=== PATIENT | male | born 1985 | race Caucasian/White ===

== ENCOUNTER 2019-04-30 06:30 | Inpatient (IN) | payer MEDICAID ==
[~2019-04-30] VITALS: Ht 180.3 cm; Wt 87.3 kg
--- NOTE | ~2019-04-30 | EC ---
PATIENT:LISA TUCKER DATE OF SERVICE: 04/30/19 SEX: M MEDICAL RECORD: [id number] DATE OF : 85 [facility] AGE OF PATIENT: 33 ADMISSION DATE: 04/30/19 REFERRING PHYSICIAN: INTERPRETING PHYSICIAN: LOIS VALDEZ MD ECHOCARDIOGRAM REPORT ECHO CHARGES 4 ECHO COMPLETE Date: 04/30/19 CLINICAL DIAGNOSIS: IHSS/CP ECHOCARDIOGRAPHIC MEASUREMENTS (adult normal given) AC root (d.<3.7cm) 3.6 cm LV Septum d (<1.2 cm> 1.5 cm Valve Excursion 2.5 cm LV Septum (systole) 1.8 cm Left Atria (s.<4.0cm> 4.3 cm LVPW d(<1.2cm) 1.1 cm RV (d.<2.3cm) 2.2 cm LVPW (sytole) 1.8 cm LV diastole(<5.6CM) 6.5 cm MV E-F(>70mm/sec) cm LV systole 4.6 cm LVOT Diameter 2.0 cm MV exc.(>10mm) cm Est.ejection fraction (50-75%) % DOPPLER: LVIT cm/sec A 61.0 cm/sec E 53.0 cm/sec LA cm/sec RVSP 37.0 mmHg LVOT 68.0 cm/sec AOP1/2T m/s Asc. Ao 106 cm/sec RVOT 57.0 cm/sec RA cm/sec PA 100 cm/sec AV Gradient Peak 4.5 mmHg AV Mean 2.4 mmHg AV Area 1.9 cm MV Gradient Peak 2.2 mmHg MV Mean 0.97 mmHg MV Area cm COMMENTS: [employer] Dispatcher: 1 ROBERT SOTOOE Sales And Marketing Intern: 1 Dr. Valdez TAPE# PACS Pericardial Effusion N DATE OF SERVICE: ECHOCARDIOGRAM FINDINGS: 1. Left ventricular chamber size is dilated. Left ventricular systolic function is moderately reduced, overall ejection fraction 30%. 2. Left atrium is enlarged at 4.3 cm. Right atrium and right ventricular chamber sizes are as well dilated giving 4-chamber dilatation. 3. Valvular structures have normal structure and motion. ECHOCARDIOGRAM REPORT [id number] LISA TUCKER 4. No evidence of outflow tract hypertrophy. 5. Doppler interrogation reveals mild mitral regurgitation, moderate tricuspid regurgitation, no other valvular insufficiency or stenosis. Pulmonary systolic pressure is estimated at 37 mmHg. 6. No evidence of pericardial effusion or left ventricular thrombus. TRANSINT:[id number] Voice Confirmation ID: [id number] DOCUMENT ID: [id number] LOIS VALDEZ MD CC: [id number] DICTATION DATE: 04/30/191703 CUSTODIAL AIDE: 04/30/19 1734 ADM IN [facility] [address] [place] [address]
[2019-04-30 06:40] VITALS: Ht 180.3 cm; Wt 87.3 kg
[2019-04-30] MEDS ORDERED: TOPROL XL100 MG PO (06:43)
[2019-04-30] MEDS ORDERED: HYDROCODON-ACE1 EA10 PO (06:44)
[2019-04-30] MEDS ORDERED: XANAX1 MG PO (06:44)
[2019-04-30] MEDS ORDERED: FUROSEMIDE20 MG PO (06:45)
[2019-04-30 07:00] VITALS: BP 101/61
[2019-04-30 07:01] LABS: BASOPHILS 0.6 % (0-2); EOSINOPHILS 3.6 % (0-7); HEMOGLOBIN 12.9 g/dL (13.5-17.5); IMMATURE GRANULOCYTES 0.1 % (0-5); LYMPHOCYTES 37.5 % (15-50); MCH 29.1 pg (26.0-34.0); MCHC 33.9 g/dL (31.0-37.0); MCV 85.6 fL (80.0-100.0); MEAN PLATELET VOLUME 9.7 fL (7.4-10.4); MONOCYTES 14.3 % (2-11); NEUTROPHILS 43.9 % (40-80); PLATELET COUNT 298 10x3/uL (130-400); RBC 4.44 10x6/uL (4.20-6.10); RDW 13.3 % (11.5-14.5); WBC 9.1 10x3/uL (4.8-10.8)
--- NOTE | 2019-04-30 07:07 | NUR ---
REPROT GIVEN TO MONET LINDO
[2019-04-30 07:13] LABS: APTT 29.5 SECONDS (22.8-39.4); INR 1.09 (0.85-1.17); PROTIME 13.6 SECONDS (11.6-15.0)
[2019-04-30 07:42] LABS: ALBUMIN 3.4 g/dL (3.4-5.0); ALKALINE PHOSPHATASE 97 U/L (46-116); ALT (SGPT) 46 U/L (10-68); BILIRUBIN - TOTAL 0.23 mg/dL (0.2-1.3); CALC OSMOLALITY 287 mosm/kg (275-300); CALCIUM 8.7 mg/dL (8.5-10.1); CARBON DIOXIDE 24.1 mmol/L (21.0-32.0); CHLORIDE - SERUM 107 mmol/L (98-107); CKMB 7.2 U/L (0.0-3.6); CREATINE KINASE 140 UL (21-232); CREATININE - SERUM 1.1 mg/dL (0.6-1.3); GLUCOSE 98 mg/dL (74-106); MAGNESIUM - SERUM 1.9 mg/dL (1.8-2.4); PROTEIN - SERUM 7.5 g/dL (6.4-8.2); SODIUM 143 mmol/L (136-145); UREA NITROGEN 22 mg/dL (7-18); eGFR NON AFRICAN AMERICAN 82 mL/min (90-120)
[2019-04-30 07:46] LABS: TROPONIN-I 0.081 ng/mL (0.000-0.060)
--- NOTE | 2019-04-30 07:51 | NUR ---
PATIENTS SISTER JOEL CONTACED VIA PHONE PER PATIENT REQUEST, INFORMED THAT PATIENT IS TO BE ADMITTED.
[2019-04-30 08:00] VITALS: BP 108/57
[2019-04-30 08:53] LABS: CKMB 5.8 U/L (0.0-3.6); CREATINE KINASE 133 UL (21-232); TROPONIN-I 0.076 ng/mL (0.000-0.060)
[2019-04-30 09:00] VITALS: BP 110/61
[2019-04-30 10:00] VITALS: BP 105/64
--- NOTE | 2019-04-30 11:03 | NUR ---
PATIENT SEEN BY DR. MENDEZ, ALSO [employer] REP AT BEDSIDE, PACER/DEFIB INTERPRETED. PATIENT CAN BE DC'D HOME PER DR. MENDEZ.
[2019-04-30 11:04] VITALS: BP 110/63
--- NOTE | 2019-04-30 11:20 | HP ---
PATIENT: LISA TUCKER MEDICAL RECORD: [id number] ACCOUNT: [id number] LOCATION:[facility].E15- : 85 ADMISSION DATE: 04/30/19 PCP: XENIA GLEZ HISTORY AND PHYSICAL EXAMINATION DIAGNOSES: 1. Cardiomyopathy. 2. ICD. 3. IHSS. 4. Hypertension. HISTORY OF PRESENT ILLNESS: This is a gentleman followed by cardiology in [place] who now relocates to the [facility]. He has a history of IHSS, cardiomyopathy, and ICD. He presents with shortness of breath, fluid overload, and chest pain. His troponin is elevated; however, his troponin has been elevated in the past due to the IHSS. He is on metoprolol 100 mg b.i.d. for this. His systolic blood pressure is in the 100 range. Pulse is in the 60s. His troponin is 0.076. Chest x-ray has no significant pulmonary vascular edema even though he has crackles on his exam compatible with pulmonary edema. PHYSICAL EXAMINATION: GENERAL APPEARANCE: Well-nourished, well-developed, appears stated age. Level of distress, comfortable. PSYCHIATRIC: Mental status, alert, normal affect. Orientation, oriented to time, place and person. EYES: Lids and conjunctiva, noninjected. No discharge, no pallor. ENT: Lips, teeth, gums, normal dentition. Oropharynx, no cyanosis, no pallor. NECK: Carotid arteries, bilateral normal upstroke, no bruits, no thrills. JUGULAR VEINS: No jugular venous pressure or distention. CERVICAL LYMPH NODES: Nontender, nonenlarged. THYROID: Not enlarged. Nontender. No nodules. LUNGS: Respiratory effort, unlabored. CHEST: Normal curvature. No thoracic deformity. No chest wall tenderness. Percussion, resonant. Auscultation, clear. No wheezes, no rales, no rhonchi. CARDIOVASCULAR: Precordial exam, nondisplaced. No heaves or pericardial thrills. Rate and rhythm, regular. Heart sounds, normal S1, normal S2. No S3, no gallop, no rub. Systolic murmur, not heard. Diastolic murmur, not heard. EXTREMITIES: No cyanosis, no edema. Peripheral pulses, full and equal in all extremities, except as noted. No bruits appreciated. ABDOMEN: Soft, nondistended. Normal aorta. No bruit. Nontender. No masses. Liver, nontender, no hepatomegaly. Spleen, nontender, no splenomegaly. MUSCULOSKELETAL: No joint tenderness. No joint swelling. No erythema. NEUROLOGICAL: Normal gait, normal strength, normal tone. SKIN: Warm and dry. OVERALL IMPRESSION: Chest pain, nausea and vomiting. At this time, we will give least 1 dose of IV Lasix to try to clear this and get his shortness of breath better giving him symptomatic relief from the chest pain. We will interrogate the ICD and do an echocardiogram. TRANSINT:[id number] Voice Confirmation ID: [id number] DOCUMENT ID: [id number] HISTORY AND PHYSICAL [id number] LISA TUCKER JEFFREY MD at 1120 CC: [id number] DICTATION DATE: 04/30/19927 SALESPERSON [employer]: 04/30/19940 ADM IN [facility] [address] [place] [address]
== END 2019-04-30 10:42 | disposition home or self-care (01) | DRG 316 ==
LOC: D.ER 06:30 → D.EDHOLD 09:13
PROVIDERS: Family Medicine; ADMIT Internal Medicine Interventional Cardiology; ATTEND Internal Medicine Interventional Cardiology
DX: I42.1 Obstructive hypertrophic cardiomyopathy (principal); I42.9 Cardiomyopathy, unspecified; I10 Essential (primary) hypertension; Z95.810 Presence of automatic (implantable) cardiac defibrillator; I45.10 Unspecified right bundle-branch block

== ENCOUNTER 2019-05-02 15:31 | Emergency (ER) | payer MEDICAID ==
[~2019-05-02] VITALS: Ht 180.3 cm; Wt 87.3 kg
[~2019-05-02 15:31] MED LIST: FUROSEMIDE20 MG PO; HYDROCODON-ACE1 EA10 PO; TOPROL XL100 MG PO; XANAX1 MG PO
[2019-05-02 15:33] VITALS: Ht 180.3 cm; Wt 87.3 kg
[2019-05-02 16:31] LABS: BASOPHILS 0.6 % (0-2); EOSINOPHILS 1.9 % (0-7); HEMATOCRIT 34.2 % (42.0-54.0); HEMOGLOBIN 11.5 g/dL (13.5-17.5); IMMATURE GRANULOCYTES 0.2 % (0-5); LYMPHOCYTES 49.3 % (15-50); MCH 28.5 pg (26.0-34.0); MCHC 33.6 g/dL (31.0-37.0); MCV 84.9 fL (80.0-100.0); MEAN PLATELET VOLUME 9.6 fL (7.4-10.4); MONOCYTES 7.3 % (2-11); NEUTROPHILS 40.7 % (40-80); PLATELET COUNT 315 10x3/uL (130-400); RBC 4.03 10x6/uL (4.20-6.10); RDW 13.2 % (11.5-14.5); WBC 8.1 10x3/uL (4.8-10.8)
[2019-05-02 16:42] LABS: APTT 27.4 SECONDS (22.8-39.4); INR 1.12 (0.85-1.17); PROTIME 13.9 SECONDS (11.6-15.0)
[2019-05-02 18:31] LABS: UDS - AMPHET NEGATIVE QUAL (NEGATIVE); UDS - BARB NEGATIVE QUAL (NEGATIVE); UDS - BENZO POSITIVE QUAL (NEGATIVE); UDS - COCAINE NEGATIVE QUAL (NEGATIVE); UDS - OPIATE NEGATIVE QUAL (NEGATIVE); UDS - PCP NEGATIVE QUAL (NEGATIVE); UDS - THC POSITIVE QUAL (NEGATIVE)
[2019-05-02 18:36] LABS: ALBUMIN 3.2 g/dL (3.4-5.0); ALKALINE PHOSPHATASE 79 U/L (46-116); ALT (SGPT) 41 U/L (10-68); BILIRUBIN - TOTAL 0.26 mg/dL (0.2-1.3); CALC OSMOLALITY 285 mosm/kg (275-300); CALCIUM 8.2 mg/dL (8.5-10.1); CARBON DIOXIDE 24.2 mmol/L (21.0-32.0); CHLORIDE - SERUM 110 mmol/L (98-107); CREATININE - SERUM 0.8 mg/dL (0.6-1.3); GLUCOSE 97 mg/dL (74-106); PROTEIN - SERUM 6.9 g/dL (6.4-8.2); SODIUM 143 mmol/L (136-145); UREA NITROGEN 15 mg/dL (7-18); eGFR NON AFRICAN AMERICAN > 90 mL/min (90-120)
[2019-05-02 18:52] LABS: CKMB 4.5 U/L (0.0-3.6); CREATINE KINASE 202 UL (21-232)
[2019-05-02 19:07] LABS: TROPONIN-I 0.087 ng/mL (0.000-0.060)
[2019-05-02 19:56] VITALS: BP 112/78
== END 2019-05-02 19:57 | disposition home or self-care (01) ==
LOC: D.ER 15:31
PROVIDERS: Family Medicine
DX: R07.89 Other chest pain (principal); Z72.89 Other problems related to lifestyle; I10 Essential (primary) hypertension

== ENCOUNTER 2021-03-01 17:46 | Observation (INO) | payer MEDICAID ==
[~2021-03-01] VITALS: Ht 180.3 cm; Wt 73.5 kg
[2021-03-01 18:44] LABS: BASOPHILS 0.4 % (0-2); EOSINOPHILS 1.3 % (0-7); HEMATOCRIT 32.4 % (42.0-54.0); HEMOGLOBIN 10.6 g/dL (13.5-17.5); IMMATURE GRANULOCYTES 0.1 % (0-5); LYMPHOCYTE ABS# 2.58 10x3/uL (1.32-3.57); LYMPHOCYTES 30.9 % (15-50); MCH 26.5 pg (26.0-34.0); MCHC 32.7 g/dL (31.0-37.0); MEAN PLATELET VOLUME 10.8 fL (7.4-10.4); MONOCYTES 11.2 % (2-11); NEUTROPHIL ABS# 4.68 10x3/uL (1.78-5.38); NEUTROPHILS 56.1 % (40-80); RDW 16.8 % (11.5-14.5); WBC 8.3 10x3/uL (4.8-10.8)
[2021-03-01 18:49] VITALS: BP 101/75
[2021-03-01 18:54] LABS: PLATELET COUNT 396 10x3/uL (130-400)
[2021-03-01 19:10] LABS: CALC OSMOLALITY 280 mosm/kg (275-300); CALCIUM 8.7 mg/dL (8.5-10.1); CHLORIDE - SERUM 104 mmol/L (98-107); CREATININE - SERUM 1.1 mg/dL (0.6-1.3); GLUCOSE 98 mg/dL (74-106); POTASSIUM - SERUM 4.2 mmol/L (3.5-5.1); SODIUM 139 mmol/L (136-145); UREA NITROGEN 22 mg/dL (7-18); eGFR NON AFRICAN AMERICAN 81 mL/min (90-120)
--- NOTE | 2021-03-01 19:12 | NUR ---
PATIENT COMPLAINING OF PAIN AND NAUSEA MEDICINE THRASHING IN BED CHEST PAIN 8. LEFT ROOM TO REQUEST MED, WHEN RETURNED TO ROOM, PATIENT SITTING CLMLY IN BED WATCHING TV. AWAITING ORDERS
[2021-03-01 19:14] VITALS: BP 117/91
[2021-03-01 19:14] LABS: APTT 31.1 SECONDS (22.8-39.4); INR 1.63 (0.85-1.17); PROTIME 17.9 SECONDS (11.6-15.0)
[2021-03-01 19:30] LABS: ALKALINE PHOSPHATASE 100 U/L (30-120); ALT (SGPT) 33 U/L (10-68); BILIRUBIN - TOTAL 1.07 mg/dL (0.2-1.3); CKMB 7.4 U/L (0.0-3.6); CREATINE KINASE 344 UL (21-232); MAGNESIUM - SERUM 1.7 mg/dL (1.8-2.4)
[2021-03-01 19:35] LABS: TROPONIN-I 0.089 ng/mL (0.000-0.060)
[2021-03-01 20:00] VITALS: BP 112/77
[2021-03-01 20:30] VITALS: BP 110/85
[2021-03-01 21:00] VITALS: BP 112/84
--- NOTE | 2021-03-01 21:11 | NUR ---
REPORT CALLED TO PIERRE MAHARAJ 2 . ROOM IS DIRTY. SHE WILL CALL WHEN IT IS READY
[2021-03-01 22:54] VITALS: BP 108/81; BMI 22.7
[2021-03-01 23:29] LABS: % SATURATION 7 % (15-55); IRON 35 ug/dl (35-150); TOTAL IRON BIND CAPACITY 476 ug/dl (260-445); UNSAT IRON BIND CAPACITY 441 ug/dl (150-375)
--- NOTE | 2021-03-01 23:47 | NUR ---
PT STATED HE WAS NAUSEATED. HOWEVER REQUESTED A HAND FULL OF CRACKERS AND A LEMON KOI SODA TWICE. CRACKERS AND SODAS GIVEN TO HIM. CONT TO REQUEST SOMETHING FOR NAUSEA AND BENADRYL. STATING " I WANT TO EAT MUCH I CAN BEFORE MIDNIGHT". REQUESTING CHICKEN BROTH AT THIS TIME.
--- NOTE | 2021-03-02 00:23 | NUR ---
HE HAS BECOME BELERGENT D/T NPO STATUS. HAS KICKED 2 NURSES A PUBLIC HOUSING INTERVIEWER AND SECURITY OUT OF THE ROOM. DEMANDING TO HAVE SOMETHING TO DRINK. WE HAVE ALL ATTEMPTED TO EXPLAIN PROTOCOL. HE STARTS SCREAMING. REPORTED THREW WATER AT HAND DRAWER IN. BY HAND DRAWER IN. HE HAS DISTURBED ALL THE PT AROUND HIM AND AT TIMES REFUSES TO CLOSE THE DOOR AND CONT TO SCREAM AT STAFF. THIS NURSE WILL REQUEST ANOTHER NURSE TAKE CARE OF HIM AND KEEP AIDE OUT OF THE ROOM WELL.
--- NOTE | 2021-03-02 00:52 | NUR ---
TRYING TO EXPLAIN TO PT PROCOTOL ABOUT NPO STATUS. PT BECAME VERY BELLIGERENT. HE IS YELLING AND SCREAMING ABOUT WANTING SOMETHING TO DRINK. STILL TRIED TO REASON WITH PT. NO SUCCESS. PT THREW A GLASS OF WATER AT THIS NURSE. OBTAINED TOWELS TO PUT ON FLOOR FOR FALL PRECAUTIONS. WENT OUT OF ROOM AND CALLED Rocio MACARIO APN. ORDERS RECEIVED FOR XANAX AND PT CAN DRINK. XANAX GIVEN AND TOLD PT HE CAN DRINK AND ALSO EXPLAINED TO PT THAT CARDIOLOGY MAY NOT BE ABLE TO PERFORM TESTS TO HELP HIM. PT BEHAVIOR ESCULATES AGAIN. THIS NURSE LEFT THE ROOM. PT WILL BE MONITORED BY TELEMETRY. TRIED TO CALL HIS FAMILY BUT LINE IS BUSY.
--- NOTE | 2021-03-02 01:45 | NUR ---
NPO ORDER D/C DUE TO PT REFUSAL
--- NOTE | 2021-03-02 02:35 | NUR ---
PT PROVIDED CRACKERS & A SPRITE PER HIS REQUEST. UP IN ROOM & TOOK A SHOWER. OUT TO NURSES STATION REQUESTING TO HAVE AN EKG DONE BECAUSE "MY HEART IS FLUTTERING" EKG DONE, NSR W/ RBBB. MUCH CALMER AT PRESENT. C/O BEING HOT, AIR TURNED DOWN IN ROOM EDUCATED ON SODIUM CONTENT R/T CRACKERS & HIS CURRENT INTAKE OF THEM.
--- NOTE | 2021-03-02 06:33 | NUR ---
PT HAS BEEN RESTING QUIETLY IN BED AFTER HIS SHOWER LAST NOC. WAS GIVEN MORNING MEDS. NO CHANGES NOTED AT PRESENT.
[2021-03-02 10:51] LABS: ALBUMIN 2.7 g/dL (3.4-5.0); ALKALINE PHOSPHATASE 99 U/L (30-120); ALT (SGPT) 26 U/L (10-68); BILIRUBIN - TOTAL 0.64 mg/dL (0.2-1.3); CALC OSMOLALITY 280 mosm/kg (275-300); CALCIUM 8.1 mg/dL (8.5-10.1); CARBON DIOXIDE 25.9 mmol/L (21.0-32.0); CHLORIDE - SERUM 107 mmol/L (98-107); CKMB 6.2 U/L (0.0-3.6); CREATINE KINASE 236 UL (21-232); CREATININE - SERUM 1.1 mg/dL (0.6-1.3); GLUCOSE 81 mg/dL (74-106); MAGNESIUM - SERUM 1.9 mg/dL (1.8-2.4); POTASSIUM - SERUM 3.8 mmol/L (3.5-5.1); PROTEIN - SERUM 6.4 g/dL (6.4-8.2); SODIUM 140 mmol/L (136-145); TROPONIN-I 0.088 ng/mL (0.000-0.060); UREA NITROGEN 22 mg/dL (7-18); eGFR NON AFRICAN AMERICAN 81 mL/min (90-120)
[2021-03-02 11:08] LABS: BASOPHILS 0.5 % (0-2); IMMATURE GRANULOCYTES 0.1 % (0-5); LYMPHOCYTE ABS# 2.68 10x3/uL (1.32-3.57); LYMPHOCYTES 35.5 % (15-50); MCH 26.3 pg (26.0-34.0); MCHC 32.4 g/dL (31.0-37.0); MCV 81.3 fL (80.0-100.0); MEAN PLATELET VOLUME 10.8 fL (7.4-10.4); MONOCYTES 12.5 % (2-11); NEUTROPHIL ABS# 3.73 10x3/uL (1.78-5.38); NEUTROPHILS 49.4 % (40-80); PLATELET COUNT 383 10x3/uL (130-400); RBC 4.18 10x6/uL (4.20-6.10); RDW 16.9 % (11.5-14.5); WBC 7.6 10x3/uL (4.8-10.8)
[2021-03-02 11:46] VITALS: BP 102/68
[2021-03-02 13:34] LABS: CKMB 6.1 U/L (0.0-3.6); CREATINE KINASE 274 UL (21-232)
[2021-03-02 13:38] LABS: TROPONIN-I 0.067 ng/mL (0.000-0.060)
[2021-03-02 13:40] VITALS: Ht 180.3 cm; Wt 73.5 kg
[2021-03-02] MEDS ORDERED: TOPROL XL50 MG PO (13:41)
--- NOTE | 2021-03-02 16:16 | NUR ---
SPOKE WITH DR ACOSTA WE REVIEWED DISCHARGE MEDICATIONS FOR CLARIFICATION OF TOPROL XL.
== END 2021-03-02 16:00 | disposition home or self-care (01) ==
LOC: D.ER 17:46 → D.M2 21:03 → OBSVTIME 21:04 → D.M2 03-02 16:00
PROVIDERS: Family Medicine; ADMIT Family Medicine; ATTEND Family Medicine
DX: R07.9 Chest pain, unspecified (principal); I42.1 Obstructive hypertrophic cardiomyopathy; R77.8 Other specified abnormalities of plasma proteins; I42.9 Cardiomyopathy, unspecified; Z95.810 Presence of automatic (implantable) cardiac defibrillator; D64.9 Anemia, unspecified; E83.42 Hypomagnesemia; I20.0 Unstable angina; R10.9 Unspecified abdominal pain